=== PATIENT | female | born 1980 | race Caucasian/White ===

== ENCOUNTER → 2020-09-14 | Day surgery (SDC) | payer BC | END | disposition home or self-care (01) | LOC: FRADUS-SUR 10:29 → EDSTATUS 10:45 | PROVIDERS: ATTEND Surgery Surgical Oncology | PROC: 0H9T3ZX Drainage of Right Breast, Percutaneous Approach, Diagnostic (ICD-10-PCS; principal; 2020-09-14) | DX: D24.1 Benign neoplasm of right breast (principal) | CPT/HCPCS: 19081; 19083; 76098-TC-FY; 77065-TC; 87899; A4648 ==